=== PATIENT | male | born 1965 | race Caucasian/White ===

== ENCOUNTER 2020-06-27 14:00 | Outpatient (CLI) | payer BC ==
--- NOTE | 2020-06-27 15:13 | RAD ---
CHEST TWO VIEWS: 06/27/20 INDICATION: History of psoriasis vulgaris. COMPARISON: None. FINDINGS: There is mild cardiomegaly. Lungs are clear. No pleural effusion is evident. No acute osseous abnorma lity is noted. IMPRESSION: Mild cardiomegaly without evidence of cardiac decompensation. POS: [facility]
== END 2020-06-27 14:01 | disposition home or self-care (01) ==
LOC: BICRAD 14:00
PROVIDERS: ATTEND Physician Assistant
DX: L40.0 Psoriasis vulgaris (principal); L60.9 Nail disorder, unspecified; I51.7 Cardiomegaly
CPT/HCPCS: 71046